=== PATIENT | female | born 1960 | race Caucasian/White ===

== ENCOUNTER 2020-08-04 23:22 | Inpatient (IN) | payer SELFPAY ==
[2020-08-05 06:24] LABS: HEMOGLOBIN 10.7 gm/dl (12.3-15.3); RED BLOOD COUNT 3.61 M/UL (4.00-5.10); WHITE BLOOD COUNT 11.3 K/UL (4.5-11.0)
[2020-08-06 06:39] LABS: HEMOGLOBIN 10.1 gm/dl (12.3-15.3); RED BLOOD COUNT 3.42 M/UL (4.00-5.10)
[2020-08-06 06:45] LABS: WHITE BLOOD COUNT 8.1 K/UL (4.5-11.0)
[2020-08-06 06:54] LABS: BUN/CREATININE RATIO 5 (0-10)
[2020-08-07 04:50] LABS: WHITE BLOOD COUNT 6.2 K/UL (4.5-11.0)
[2020-08-07 05:10] LABS: BUN/CREATININE RATIO 5 (0-10)
[2020-08-07 05:13] LABS: RED BLOOD COUNT 3.81 M/UL (4.00-5.10)
[2020-08-08 06:27] LABS: BUN/CREATININE RATIO 7 (0-10)
[2020-08-08] MEDS ORDERED: ASACOL HD800 MG PO (10:36)
[2020-08-08] MEDS ORDERED: PREDNISONE 10 M10 MG PO (10:36)
== END 2020-08-08 10:32 | disposition home or self-care (01) | DRG 386 ==
LOC: M/S 08-05 00:44
PROVIDERS: Internal Medicine; Internal Medicine Gastroenterology; Internal Medicine Infectious Disease; ADMIT Internal Medicine
PROC: 0DBB8ZX Excision of Ileum, Via Natural or Artificial Opening Endoscopic, Diagnostic (ICD-10-PCS; principal; 2020-08-07 11:00)
DX: K51.018 Ulcerative (chronic) pancolitis with other complication (principal); D62 Acute posthemorrhagic anemia; Z20.822 Contact with and (suspected) exposure to COVID-19; E87.6 Hypokalemia; E86.0 Dehydration
CPT/HCPCS: 36415; 80048; 80053; 83735; 85025; 85652; 87045; 87046; G0379; J1100; J1956; J2405; J2704; J2920; J7040; J7121